=== PATIENT | female | born 1990 | race African-American/Black ===

== ENCOUNTER 2018-05-23 23:41 | Emergency (ER) | payer BC, OTHER ==
[2018-05-24] MEDS ORDERED: KETOROLAC 30 MG/ML INJ ONE (00:46)
[2018-05-24 01:22] LABS: Absolute Monocytes 0.4 K/uL (0.1-1.3); Absolute Neutrophil 9.2 K/uL (1.8-8.0); Basophils % 0.2 % (0-1.3); Eosinophils % 0.4 % (0-4.4); Hematocrit 35.7 % (36.0-45.0); Lymphocytes % 9.6 % (15.3-44.8); Monocytes % 3.5 % (3.3-12.3); RBC Red Blood Cell Count 3.88 M/uL (3.86-4.86)
[2018-05-24 01:44] LABS: Protime INR 1.11
[2018-05-24 01:53] LABS: ALT/SGPT 16 U/L (12-78); AST/SGOT 17 U/L (15-37); Albumin 3.6 g/dL (3.4-5.0); Alkaline Phosphatase 46 U/L (45-117); BUN Blood Urea Nitrogen 8 mg/dL (7-18); Bicarbonate 27 mmol/L (21-32); Bilirubin Direct 0.2 mg/dL (0-0.2); Bilirubin Total 0.5 mg/dL (0.2-1.0); Glucose Level 102 mg/dL (74-106); Magnesium 1.9 mg/dL (1.8-2.4); NT PRO-BNP 11 pg/mL (<125); Potassium 3.6 mmol/L (3.5-5.1); Protein, Total 7.1 g/dL (6.4-8.2); Sodium Level 140 mmol/L (136-145); Troponin (Emerg Dept Use Only) < 0.02 ng/mL (0.0-0.045)
--- NOTE | 2018-05-24 02:42 | ER ---
Nurse's Notes [facility] Name: Gerald Nunez Age: 28 yrs Sex: Female : 1990 Arrival Date: 05/23/2018 Time: 23:42 Bed 18 Private MD: Madeline Covarrubias K Diagnosis: Other chest pain Presentation: 05/23 23:58 Presenting complaint: Patient states: Mid sternal chest pain since 2149 tonight. tl2 Reports light headedness on standing and nausea. Chest pain comes and goes. Transition of care: patient was not received from another setting of care. Onset of symptoms was May 23, 2018 at 21:50. Risk Assessment: Do you want to hurt yourself or someone else? Patient reports no desire to harm self or others. Initial Sepsis Screen: Does the patient meet any 2 criteria? No. Patient's initial sepsis screen is negative. Does the patient have a suspected source of infection? No. Patient's initial sepsis screen is negative. Care prior to arrival: None. 23:58 Method Of Arrival: Ambulatory tl2 23:58 Acuity: LAI 3 tl2 Triage Assessment: 05/24 00:01 Cardiovascular: Reports chest pain, Chest pain is described as mild, quality is sharp, tl2 is located in anterior substernal area began 3 hours prior to arrival episodes are intermittent. 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 - Social history:: Smoking status: Patient/guardian denies using tobacco. - Ebola Screening: : No symptoms or risks identified at this time. Screenin/21 00:01 Abuse screen: Denies threats or abuse. Nutritional screening: No deficits noted. tl2 Tuberculosis screening: No symptoms or risk factors identified. Fall Risk None identified. Assessment: 00:17 General: Appears in no apparent distress. uncomfortable, Behavior is calm, cooperative, jd3 appropriate for age. Pain: Complains of pain in chest Pain does not radiate. Pain began suddenly. Neuro: Level of Consciousness is awake, alert, obeys commands, Oriented to person, place, time, situation, Appropriate for age. Cardiovascular: Heart tones S1 S2 present Capillary refill < 3 seconds Patient's skin is warm and dry. Rhythm is regular. Respiratory: Airway is patent Respiratory effort is even, unlabored, Respiratory pattern is regular, symmetrical, Breath sounds are clear bilaterally. GI: No signs and/or symptoms were reported involving the gastrointestinal system. : No signs and/or symptoms were reported regarding the genitourinary system. EENT: No signs and/or symptoms were reported regarding the EENT system. Derm: Skin is intact, Skin is dry, Skin is normal, Skin temperature is warm. Musculoskeletal: Circulation, motion, and sensation intact. Range of motion: intact in all extremities. 01:30 Reassessment: Patient appears in no apparent distress at this time. Patient and/or jd3 family updated on plan of care and expected duration. Pain level reassessed. Patient is alert, oriented x 3, equal unlabored respirations, skin warm/dry/pink. 02:50 Reassessment: Patient appears in no apparent distress at this time. Patient and/or jd3 family updated on plan of care and expected duration. Pain level reassessed. Patient is alert, oriented x 3, equal unlabored respirations, skin warm/dry/pink. Vital Signs: 05/23 23:59 BP 99 / 73; Pulse 93; Resp 18; Temp 98.4; Pulse Ox 100% on R/A; Weight 76.2 kg; Height tl2 5 ft. 2 in. (157.48 cm); Pain 6/10; 05/24 01:01 BP 101 / 60; Pulse 82; Resp 16; Pulse Ox 98% on R/A; jd3 01:01 BP 97 / 55; Pulse 89; Resp 16; Pulse Ox 99% on R/A; jd3 02:38 BP 100 / 55; Pulse 86; Resp 16 S; Pulse Ox 100% on R/A; jd3 05/23 23:59 Body Mass Index 30.73 (76.20 kg, 157.48 cm) tl2 ED Course: 05/23 23:42 Patient arrived in ED. am2 23:43 Madeline Covarrubias MD is Private Physician. am2 23:59 Triage completed. tl2 23:59 Arm band placed on right wrist. tl2 05/24 00:17 Gregorio Portillo PA is PHCP. cp 00:17 Jaswinder Wilder MD is Attending Physician. cp 00:17 Jaxon Khan, RN is Primary Nurse. jd3 00:40 Inserted saline lock: 20 gauge in right antecubital area, using aseptic technique. rr5 Blood collected. 00:43 Patient has correct armband on for positive identification. Placed in gown. Bed in low rr5 position. Call light in reach. Side rails up X2. cardiac monitor on. Pulse ox on. NIBP on. 01:16 XRAY Chest (1 view) In Process Unspecified. EDMS 02:39 Patient maintains SpO2 saturation greater than 95% on room air. jd3 02:50 No provider procedures requiring assistance completed. IV discontinued, intact, jd3 bleeding controlled, No redness/swelling at site. Pressure dressing applied. Administered Medications: 00:57 Drug: TORadol 30 mg Route: IVP; Site: right antecubital; jd3 02:51 Follow up: Response: No adverse reaction jd3 Outcome: 02:41 Discharge ordered by MD. cp 02:50 Discharged to home ambulatory, with family. jd3 02:50 Condition: stable 02:50 Discharge instructions given to patient, family, Instructed on discharge instructions, follow up and referral plans. medication usage, Demonstrated understanding of instructions, follow-up care, medications, Prescriptions given X 1. 02:51 Patient left the ED. jd3 Signatures: Dispatcher [employer] EDPR Gregorio Portillo PA PA cp Knox, Taylor, RN RN tl2 Luz Maria Potts am2 Jaxon Khan RN RN jd3 Dakota Estrada RN RN rr5
--- NOTE | 2018-05-24 02:42 | EDPHYS ---
Physician Documentation [facility] Name: Gerald Nunez Age: 28 yrs Sex: Female : 1990 Arrival Date: 05/23/2018 Time: 23:42 Bed 18 Private MD: Madeline Covarrubias K ED Physician Jaswinder Wilder HPI: 05/24 00:30 This 28 yrs old Black Female presents to ER via Ambulatory with complaints of Chest cp Pain. 00:30 Associated signs and symptoms: Pertinent positives: near syncope, Pertinent negatives: cp abdominal pain, cough, fever, sore throat, vomiting, wheezing. Modifying factors: the patient symptoms are aggravated by deep inspiration. 00:30 Onset: The symptoms/episode began/occurred at 21:50. cp 00:30 The patient or guardian reports chest pain that is located primarily in the substernal cp area. The pain does not radiate. The chest pain is described as sharp. Duration: The patient or guardian reports a single episode, improving. 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 - Social history:: Smoking status: Patient/guardian denies using tobacco. - Ebola Screening: : No symptoms or risks identified at this time. ROS: 05/24 00:35 Constitutional: Negative for body aches, chills, fever, poor PO intake. cp 00:35 Eyes: Negative for injury, pain, redness, and discharge. cp 00:35 ENT: Negative for drainage from ear(s), ear pain, sore throat, difficulty swallowing, difficulty handling secretions. 00:35 Neck: Negative for pain with movement, pain at rest, stiffness. 00:35 Cardiovascular: Positive for chest pain, of the retrosternal, Negative for edema, palpitations. 00:35 Respiratory: Negative for cough, shortness of breath, wheezing. 00:35 Back: Negative for pain at rest, pain with movement, radiated pain. 00:35 : Negative for urinary symptoms. 00:35 Skin: Negative for cellulitis, rash. 00:35 Neuro: Positive for near syncope, Negative for altered mental status, headache, syncope, weakness. 00:35 All other systems are negative. Exam: 00:42 Constitutional: The patient appears in no acute distress, alert, awake, cp non-diaphoretic, non-toxic, well developed, well nourished. 00:42 Head/Face: Normocephalic, atraumatic. Eyes: Pupils equal round and reactive to light, cp extra-ocular motions intact. Lids and lashes normal. Conjunctiva and sclera are non-icteric and not injected. Cornea within normal limits. Periorbital areas with no swelling, redness, or edema. ENT: Nares patent. No nasal discharge, no septal abnormalities noted. Tympanic membranes are normal and external auditory canals are clear. Oropharynx with no redness, swelling, or masses, exudates, or evidence of obstruction, uvula midline. Mucous membranes moist. 00:42 Chest/axilla: Inspection: normal, Palpation: crepitus, is not appreciated, tenderness, that is mild, of the mid-sternal area, that partially reproduces the patient's complaints. 00:42 Cardiovascular: Rate: normal, Rhythm: regular, Pulses: Pulses are 2+ in right radial artery and left radial artery. Heart sounds: murmur, not appreciated, rub, not appreciated, gallop, not appreciated, Edema: is not appreciated, JVD: is not appreciated. 00:42 Respiratory: the patient does not display signs of respiratory distress, Respirations: normal, no use of accessory muscles, no retractions, no splinting, no tachypnea, labored breathing, is not present, Breath sounds: are clear throughout, no decreased breath sounds, no stridor, no wheezing. 00:42 Abdomen/GI: Inspection: abdomen appears normal, Palpation: abdomen is soft and non-tender, in all quadrants, rebound tenderness, is not appreciated, involuntary guarding, is not appreciated. 00:42 Back: pain, is absent, ROM is normal. 00:42 Skin: cellulitis, is not appreciated, no rash present. 00:42 Neuro: Orientation: to person, place \T\ time. Mentation: is normal, Cerebellar function: is grossly normal, Motor: is normal, Sensation: is normal. 00:45 ECG was reviewed by the Attending Physician. cp Vital Signs: 05/23 23:59 BP 99 / 73; Pulse 93; Resp 18; Temp 98.4; Pulse Ox 100% on R/A; Weight 76.2 kg; Height tl2 5 ft. 2 in. (157.48 cm); Pain 6/10; 05/24 01:01 BP 101 / 60; Pulse 82; Resp 16; Pulse Ox 98% on R/A; jd3 01:01 BP 97 / 55; Pulse 89; Resp 16; Pulse Ox 99% on R/A; jd3 02:38 BP 100 / 55; Pulse 86; Resp 16 S; Pulse Ox 100% on R/A; jd3 05/23 23:59 Body Mass Index 30.73 (76.20 kg, 157.48 cm) tl2 MDM: 00:18 Patient medically screened. cp 02:40 The patient's pulmonary embolism risk score was calculated as follows: No Risks (0 Pts).cp 02:40 Differential diagnosis: abnormal EKG, acute myocardial infarction, acute pericarditis, cp chest wall pain, cholecystitis, costochondritis, pancreatitis, pericarditis, pleurisy, pulmonary embolus, stable angina, unstable angina. Data reviewed: vital signs, nurses notes, lab test result(s), EKG, radiologic studies, plain films. Test interpretation: by ED physician or midlevel provider: ECG, plain radiologic studies. Response to treatment: the patient's symptoms have markedly improved after treatment, VSS. Pain markedly improved, and as a result, I will discharge patient. Special discussion: Based on the patient's history, exam, and Dx evaluation, there is no indication for emergent intervention or inpatient Tx. It is understood by the patient/guardian that if the Sx's persist or worsen they need to return immediately for re-evaluation. 05/24 00:23 Order name: Basic Metabolic Panel; Complete Time: 02:24 cp 05/24 02:25 Interpretation: Normal except: CL 108; CA 8.0. cp 05/24 00:23 Order name: CBC with Diff cp 05/24 02:25 Interpretation: Normal except: HGB 11.9; HCT 35.7; MCV 92.1; LIGIA% 86.3; LYM% 9.6; NEUT cp A 9.2. 05/24 00:23 Order name: LFT's; Complete Time: 02:24 cp 05/24 00:23 Order name: Magnesium; Complete Time: 02:24 cp 05/24 00:23 Order name: NT PRO-BNP; Complete Time: 02:24 cp 05/24 00:23 Order name: PT-INR; Complete Time: 02:24 cp 05/24 00:23 Order name: Troponin (emerg Dept Use Only); Complete Time: 02:24 cp 05/24 02:25 Interpretation: Within normal limits: TROPED < 0.02. cp 05/24 00:23 Order name: XRAY Chest (1 view) cp 05/24 00:23 Order name: EKG; Complete Time: 00:24 cp 05/24 00:23 Order name: Cardiac monitoring; Complete Time: 00:50 cp 05/24 01:41 Order name: Manual Differential EDMS 05/24 01:51 Order name: Urine Dipstick--Ancillary (enter results) 2 05/24 01:51 Order name: Urine --Ancillary (enter results) [facility] 05/24 00:23 Order name: EKG - Nurse/Tech; Complete Time: 00:50 cp 05/24 00:23 Order name: IV Saline Lock; Complete Time: 00:50 cp 05/24 00:23 Order name: Labs collected and sent; Complete Time: 00:50 cp 05/24 00:23 Order name: O2 Per Protocol; Complete Time: 00:25 cp 05/24 00:23 Order name: O2 Sat Monitoring; Complete Time: 00:25 cp 05/24 00:23 Order name: Urine Dipstick-Ancillary (obtain specimen); Complete Time: 01:21 cp 05/24 00:23 Order name: Urine Test (obtain specimen); Complete Time: 01: cp 05/24 00:23 Order name: Blood Pressure Recheck: bilateral upper extremity; Complete Time: 01:02 cp EC:45 Rate is 88 beats/min. Rhythm is regular. MT interval is normal. QRS interval is normal. cp QT interval is normal. Interpreted by me. Reviewed by me. Administered Medications: 00:57 Drug: TORadol 30 mg Route: IVP; Site: right antecubital; jd3 02:51 Follow up: Response: No adverse reaction jd3 Disposition: 04:45 Co-signature as Attending Physician, Jaswinder Wilder MD. rn Disposition: 05/24/18 02:41 Discharged to Home. Impression: Other chest pain. - Condition is Stable. - Discharge Instructions: Chest Wall Pain, Aspirin and Your Heart. - Prescriptions for Naprosyn 500 mg Oral Tablet - take 1 tablet by ORAL route 2 times per day take with food; 20 tablet. - Medication Reconciliation Form, Thank You Letter, Antibiotic Education, Prescription Opioid Use form. - Follow up: Private Physician; When: 2 - 3 days; Reason: Recheck today's complaints. - Problem is new. - Symptoms are resolved. Signatures: Dispatcher [employer] EDMS Jaswinder Wilder MD MD rn Gregorio Portillo PA PA cp Knox, Taylor RN RN tl2 Jaxon Khan RN RN jd3 Corrections: (The following items were deleted from the chart) 02:25 02:25 Normal except: CL 108. cp cp 02:51 02:41 05/24/2018 02:41 Discharged to Home. Impression: Other chest pain. Condition is jd3 Stable. Forms are Medication Reconciliation Form, Thank You Letter, Antibiotic Education, Prescription Opioid Use. Follow up: Private Physician; When: 2 - 3 days; Reason: Recheck today's complaints. Problem is new. Symptoms are resolved. cp 23:04 00:30 Onset: The symptoms/episode began/occurred suddenly, at 21:30, cp cp
[2018-05-24 03:12] VITALS: TEMP 98.4
[2018-05-24 03:14] VITALS: BP 100/55; O2SAT 100
[2018-05-24 03:38] LABS: Blood Morphology Comment NOT SEEN (NOT SEEN); Platelet Estimate ADEQ
[2018-05-24 03:38] LABS: Urine Blood NEGATIVE (NEG); Urine Glucose NEGATIVE (NEG); Urine Protein 1+ (NEG); Urine Specific Gravity >1.030 (1.005-1.030)
--- NOTE | 2018-05-24 08:09 | RAD REPORT ---
EXAM DESCRIPTION: RAD - Chest Single View - 05/24/2018 1:16 am CLINICAL HISTORY: CHEST PAIN Chest pain. COMPARISON: No comparisons FINDINGS: Portable technique limits examination quality. The lungs are grossly clear. The heart is normal in size. No displaced fractures. IMPRESSION: No acute intrathoracic process suspected.
--- NOTE | 2018-05-24 10:45 | EKG ---
Test Date: 2018-05-24 Test Time: 00:31:34 Yarding Engineer: ELVIRA MEASUREMENT RESULTS: Intervals: Rate: 88 [place]: 164 QRSD: 80 QT: 346 QTc: 418 [place]: P: 61 [place]: 164 QRS: 34 T: 47 INTERPRETIVE STATEMENTS: Normal sinus rhythm Normal ECG No previous ECG available for comparison Electronically Signed On 05-24-18 10:43:25 CDT by Jason Avila
== END 2018-05-24 02:51 | disposition home or self-care (01) ==
LOC: ER 23:41
DX: R07.9 Chest pain, unspecified (principal); E78.5 Hyperlipidemia, unspecified
CPT/HCPCS: 36415; 71045; 80048; 80076; 81003; 81025; 83735; 83880; 84484; 85025; 85610; 93005; 96374; 99285